=== PATIENT | male | born 1960 ===

== ENCOUNTER 2017-04-02 20:34 | Emergency (ER) | payer BC ==
[2017-04-02 20:41] VITALS: BP 144/94
--- NOTE | 2017-04-02 21:39 | RAD ---
Indication: Back pain. 5 views of lumbar spine demonstrates disc space narrowing at L2-L3 with osteophyte formation. Mild compression of T12 is noted of 25%. IMPRESSION: Mild compression 25% T12 age of which is undetermined. Degenerative disc disease at L2-L3.
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
[2017-04-02] MEDS ORDERED: Cyclobenzaprine TAB* 10 MG PO ONE ×2 (21:51→22:01)
[2017-04-02] MEDS ORDERED: Naproxen TAB* 250 MG PO ONE (21:59)
== END 2017-04-02 22:15 | disposition home or self-care (01) ==
LOC: UCEAST 20:34
DX: S22.080A Wedge compression fracture of T11-T12 vertebra, initial encounter for closed fracture (principal); V86.59XA Driver of other special all-terrain or other off-road motor vehicle injured in nontraffic accident, initial encounter
CPT/HCPCS: 72110; 99212; A9270-GY; G0463

== ENCOUNTER 2017-11-01 18:59 | Emergency (ER) | payer BC ==
[2017-11-01 19:34] VITALS: BP 144/90
[2017-11-01] MEDS ORDERED: Naproxen TAB* 250 MG PO ONE (20:51)
--- NOTE | 2017-11-01 20:54 | RAD ---
INDICATION: Left shoulder pain after a fall COMPARISON: None. TECHNIQUE: 4 views of the left shoulder were obtained. FINDINGS: A surgical tack is noted overlying the humeral head The adequately corticated bones are in normal alignment. Joint spaces appear maintained. No fracture, dislocation or focal bony abnormality is seen. IMPRESSION: NO RADIOGRAPHICALLY APPARENT ACUTE ABNORMALITY OF THE LEFT SHOULDER. If the patient's symptoms persist, follow-up imaging is recommended.
--- NOTE | 2017-11-01 21:08 | UC ---
Shoulder Pain HPI - HPI Summary HPI Summary: states he fell this afternoon and broke the fall with left arm, landing on elbow and shoulder. c/o pain and inability to move shoulder in any direction, he iced it around 4p and took aleve, patient states that he does not experience any pain when he is not moving his arm. - History of Current Complaint Chief Complaint: UCUpperExtremity Stated Complaint: L SHOULDER PAIN Time Seen by Provider: 11/01/17 20:05 Hx Obtained From: Patient Onset/Duration: Sudden Onset, Lasting Hours Severity Initially: Mild Severity Currently: None Location Of Pain: Is Discrete @ - a-c joint Pain Intensity: 2 - Allergies/Home Medications Allergies/Adverse Reactions: Allergies Allergy/AdvReac Type Severity Reaction Status Date / Time MS Codeine [Codeine] Allergy Hives Verified 11/01/17 19:34 PMH/Surg Hx/FS Hx/Imm Hx Previously Healthy: Yes - Surgical History Surgical History: Yes Surgery Procedure, Year, and Place: rotator cuff x2. appy. hernia - Family History Known Family History: Negative: Cardiac Disease, Hypertension, Diabetes - Social History Alcohol Use: Rare Substance Use Type: None Smoking Status (MU): Never Smoked Tobacco Review of Systems Musculoskeletal: Arthralgia, Myalgia All Other Systems Reviewed And Are Negative: Yes Physical Exam Triage Information Reviewed: Yes Appearance: Well-Appearing Vital Signs: Initial Vital Signs Temp 97.7 F 11/01/17 19:28 Pulse 66 11/01/17 19:28 Resp 16 11/01/17 19:28 BP 144/90 11/01/17 19:28 Pulse Ox 97 11/01/17 19:28 Vital Signs Reviewed: Yes Eye Exam: Normal Neck exam: Normal Neck: Positive: Supple Respiratory: Positive: Chest non-tender, Lungs clear Cardiovascular: Positive: RRR, No Murmur, Pulses Normal, Brisk Capillary Refill Musculoskeletal Exam: Other - limited ROM due to pain, abduct to 45 degrees, elevation 90 degrees, sloan equivocal Skin Exam: Normal Shoulder Course/Dx - Course Course Of Treatment: use sling, continue naproxen and ice for 48 hrs, f/u orthopedic in 1 week - Differential Dx/Diagnosis Provider Diagnoses: shoulder sprain Discharge - Discharge Plan Condition: Stable Disposition: HOME Patient Education Materials: Shoulder Sprain (ED) Referrals: Franco Yeh MD [Primary Care Provider] - Armen Vicente MD [Medical Doctor] -
== END 2017-11-01 21:20 | disposition home or self-care (01) ==
LOC: UCEAST 18:59
DX: S43.402A Unspecified sprain of left shoulder joint, initial encounter (principal); W19.XXXA Unspecified fall, initial encounter; Y93.9 Activity, unspecified; Y92.9 Unspecified place or not applicable; Z88.5 Allergy status to narcotic agent
CPT/HCPCS: 99213; A9270-GY; G0463